=== PATIENT | female | born 1990 | race Caucasian/White ===

== ENCOUNTER 2017-07-30 03:13 | Emergency (ER) | payer SELFPAY ==
[~2017-07-30] VITALS: Ht 175.3 cm; Wt 68.0 kg
--- NOTE | ~2017-07-30 | CT71 ---
[facility] A Service of [facility] RADIOLOGY TEXT RESULTS PATIENT: STEPHAN RUTH LOCATION: [facility] : [birth year] UNIT #: [id number] AGE: [address]: Hannah Ramirez APRN SEX: F ORDER DR: [id number] [facility] [address] [place], [place] [address] [id number] MR#: [id number] Acc #: [id number] NAME: STEPHAN RUTH : 1990 SEX: F STUDY DATE/TIME: 07/30/2017 04:15 UNIT: [facility] ROOM: STUDY DESCRIPTION: CT Head Wo Contrast Attending Physician: Hannah Ramirez A.P.R.N. Ordering Physician: Hannah Ramirez A.P.R.N. Primary Care Physician: Primary Care Physician No MEDICAL IMAGING REPORT This report is preliminary unless electronic signature is present EXAM Head CT, 07/30 at 04:15 INDICATION Migraine headache with nausea, vomiting and dizziness that started at 09:00 p.m. last night. COMPARISON None TECHNIQUE This CT exam was performed with one or more of the following radiation dose reduction techniques: automatic exposure control, adjustment of mA and/or kV according to patient size, and iterative reconstruction. FINDINGS Axial noncontrast images were obtained from the skull base to the vertex. Ventricular size and configuration are normal. There is no evidence of acute infarct or hemorrhage. There are no extra-axial fluid collections. No mass lesion or mass effect is seen. There are no skull fractures. IMPRESSION Normal noncontrast head CT. Dictated by... Srinivasan Davies Jr., M.D. THIS IS AN ELECTRONICALLY VERIFIED REPORT Srinivasan Davies Jr., M.D. at 07/31/2017 1:54 AM OFE/christina TD: 07/30/2017 12:20 JOB #: [id number] [facility] A Service of [facility] RADIOLOGY TEXT RESULTS PATIENT: STEPHAN RUTH LOCATION: [facility] #: [id number] : [birth year] UNIT #: [id number] AGE: [address]: Hannah Ramirez APRN SEX: F ORDER DR: MEDICAL IMAGING REPORT Page 1 of 1 COPY
[2017-07-30 04:05] LABS: URINE SOURCE CLEAN CATCH
[2017-07-30 04:07] LABS: URINE APPEARANCE CLEAR; URINE BILIRUBIN NEG (NEG); URINE BLOOD NEG (NEG); URINE COLOR YELLOW; URINE GLUCOSE NEG (NEG); URINE KETONE TRACE (NEG); URINE LEUKOCYTE ESTERASE 1+ (NEG); URINE NITRATE NEG (NEG); URINE PH 6.5 (5-8); URINE PROTEIN TRACE (NEG)
[2017-07-30 04:10] LABS: CULTURE INDICATED? YES; URINE BACTERIA AUWI 1+ (NEGATIVE); URINE SQUAMOUS EPITHELIAL CELL OCC /[HPF]
== END 2017-07-30 05:30 | disposition home or self-care (01) ==
LOC: CED 03:13
PROVIDERS: Nurse Practitioner
DX: R51 Headache (principal); N39.0 Urinary tract infection, site not specified; Z88.0 Allergy status to penicillin; F17.200 Nicotine dependence, unspecified, uncomplicated
CPT/HCPCS: 70450; 81003; 84703; 87086; 96361; 96374; 96375; 99284; J1200; J1885; J2765